=== PATIENT | female | born 1935 | race Caucasian/White ===

== ENCOUNTER → 2017-12-25 13:11 | Outpatient (CLI) | payer MEDICARE, SELFPAY ==
--- NOTE | 2017-12-25 13:16 | XR_ITS ---
DEXA SCAN.-BONE DENSITY STUDY HIPS AND LUMBAR SPINE HISTORY: Postmenopausal female TECHNIQUE: DEXA scan hip and lumbar spine The most complete data summary and color graphic presentation of the today's ( and any prior ) DEXA findings are available in PACS. Definition and treatment guidelines included. COMPARISON: 2015 DEXA scan ======LUMBAR SPINE: Normal bone density L1 vertebral body demonstrates the lowest T score -1.8 with BMD0.916 g/cm sq = osteopenia at L1 . Otherwise Overall mean lumbar L1-L4 T score -0.6 with BMD1.11 g/cm sq . 2016 prior DEXA the mean T score -0.7 with BMD was1.1g/cm sq Thus when comparing today's study to the prior exam there's been a minor 1% increasing mean bone density at the lumbar spine.. ====== HIPS: Femoral neck density is best predictor of hip fracture risk . Left neck demonstrates the lowest T score -2.2 with BMD0.738 g/cm sq . = Osteopenia Right femoral neck T score -1.7 with BMD 0.8 = osteopenia Averaging all region included yield today's overall Hip Mean T score -0.4 with BMD0.963 g/cm sq . 2016 DEXA overall hip T score -0.5 with mean BMD0.944 g/cm sq Thus this reflects a 2% % decrease in overall mean bone density at the hips in the interval. IMPRESSION 1. LUMBAR SPINE: Normal bone density overall T score = -0.6 . L1 with mild Osteopenia at L1 & T score = -1.8 2. HIPS: ... Overall normal bone density with T score = -0.4 However note osteopenia at the femoral necks bilaterally. With Left femoral neck T score = -2.2 WHO criteria for post-menopausal, Women: Normal: T-score at or above -1 SD Osteopenia: T-score between -1 and -2.5 SD Osteoporosis: T-score at or below -2.5 SD
== END ==
PROVIDERS: Family Provider Family Medicine; PCP Family Medicine; Visit Provider Family Medicine
DX: M85.89 Other specified disorders of bone density and structure, multiple sites (principal)
CPT/HCPCS: 77080

== ENCOUNTER → 2018-11-08 15:47 | Outpatient (CLI) | payer MEDICARE, SELFPAY ==
--- NOTE | 2018-11-08 15:54 | MM_ITS ---
MM Dig screening mamm BI w/CAD ORDERING PHYSICIAN : Iglesia Alva MD PATIENT AGE: 82 years GENDER: Female COMPARISON: February 2016. September and 2011. January 2014 INDICATION: ..82-year-old: SCREENING mammogram. No hormones. No new complaints. Noncontributory family history. TECHNIQUE: Standard CC and MLO images were obtained. R2 CAD reviewed. Additional nipple profile cc view both breast also is helpful. I FINDINGS: Moderate dense breast tissue for this age patient. Heterogeneous mild asymmetric pattern. Mammography is only slightly limited and areas of the increased density in nodularity No exogenous hormones history to contribute to such compared. However we see no significant interval change since multiple previous studies. No dominant mass. There are numerous small calcifications throughout the breasts bilaterally these appear to be stable benign pattern calcifications with no particularly suspicious forms. Bilateral follow-up in one year adequate .RIGHT BREAST:No new areas of significant concern. On scattered areas of density appear similar to previous study. Scattered small benign secretory appearing calcifications are similar to previous study.. . LEFT BREAST:. Areas of Asymmetric density are again seen at the superior & upper outer quadran, appear similar to studies dating back to 2012 2013;. Also noted. Dissipate between on the nipple profile cc view from today IMPRESSION: No significant new areas concern either breast. Stable mild asymmetry . Moderately dense breast bilaterally (particularly for this age patient) With this moderately dense heterogeneous pattern I would recommend ongoing bilateral follow-up in one year. BI-RADS Category: 2 Benign Finding(s) RECOMMENDED FOLLOW-UP: 1YR 1 YEAR FOLLOW-UP (A letter has been sent to the patient regarding results of the study.)
== END ==
PROVIDERS: PCP Family Medicine; Visit Provider Family Medicine
DX: Z12.31 Encounter for screening mammogram for malignant neoplasm of breast (principal)
CPT/HCPCS: 77067

== ENCOUNTER → 2019-12-17 13:35 | Outpatient (CLI) | payer MEDICARE, SELFPAY ==
--- NOTE | 2019-12-17 13:41 | MM_ITS ---
PROCEDURE: MM DIG SCREENING MAMM BI W/CAD CLINICAL INDICATION: SCREENING There is no personal or family history of breast cancer. COMPARISON: DMDXUWAL DIG MAMM-DX UNI LT W ADD VIEW from 09/26/2016 [facility] DIG MAMM-SCREEN PER W/CAD from 10/09/2017 [facility] MM Dig screening mamm BI w/CAD from 11/08/2018 TECHNIQUE: Standard CC and MLO images and 3D Tomosynthesis was obtained. R2 CAD reviewed. FINDINGS: Moderate scattered fibroglandular densities are seen in both breasts on a background of fatty breast parenchyma. There are multiple benign-appearing microcalcifications in each breast in addition to arterial calcification. The nipples appear to be inverted bilaterally this is been seen previously. There are stable small benign-appearing nodular densities in both breasts likely small cysts. These are best demonstrated on ghassan images. There is no suspicious lesion seen and no suspicious microcalcifications. IMPRESSION: Stable exam with no suspicious lesions seen BI-RAD Category: 2 Benign Finding(s) FOLLOW-UP: 1YR 1 Year Follow-up (A letter has been sent to the patient regarding results of the study.) Dictated by: Dr. Joey Marie MD 12/18/2019 08:[address] Joey Marie MD in [place] 12/18/2019 08:47
== END ==
PROVIDERS: PCP Family Medicine; Visit Provider Family Medicine
DX: Z12.31 Encounter for screening mammogram for malignant neoplasm of breast (principal)
CPT/HCPCS: 77063; 77067

== ENCOUNTER → 2020-08-28 09:59 | Outpatient (CLI) | payer MEDICARE, SELFPAY ==
--- NOTE | 2020-08-28 10:02 | XR_ITS ---
PROCEDURE: XR DEXA AXIAL SKELETON CLINICAL HISTORY: OSTEOPENIA COMPARISON: COLLEEN FISH DEXAAX XR DEXA axial skeleton from 12/25/2017 FINDINGS: The right hip BMD is 0.626 with a T-score of -2.0. The left hip BMD is 0.684 with a T-score of -1.5. The lumbar spine BMD is 0.923 with a T-score of -1.1. Previously the lowest bone density was in the left femoral neck with a T-score -2.2 IMPRESSION: This patient is considered osteopenic according to the World Health Organization criteria. Bone density is between 10 and 25 percent below young normal. Fracture risk is moderate. Treatment is advised. Based on these results a follow-up exam is recommended in 2 year. Dictated by: Tobias Brito MD 09/01/2020 07:16 Tobias Brito MD in [place] 09/01/2020 07:16
== END ==
PROVIDERS: PCP Family Medicine; Visit Provider Family Medicine
DX: M85.89 Other specified disorders of bone density and structure, multiple sites (principal)
CPT/HCPCS: 77080

== ENCOUNTER → 2021-03-01 09:10 | Outpatient (CLI) | payer MEDICARE, SELFPAY ==
--- NOTE | 2021-03-01 09:14 | MM_ITS ---
PROCEDURE INFORMATION: Exam: MG Screening 3D Mammography Exam date and time: 03/01/2021 9:14 AM Age: 85 years old Clinical indication: Encounter for screening mammogram for malignant neoplasm of breast TECHNIQUE: Imaging protocol: Screening tomosynthesis and 2D mammography including computer-aided detection (CAD) when performed. COMPARISON: 1. MG MM DIG SCREENING MAMM BI W/CAD 12/17/2019 2:02 PM 2. MG [facility] MM Dig screening mamm BI w/CAD 11/08/2018 4:10 PM FINDINGS: MAMMOGRAPHY: Breast composition: The breast tissue is heterogeneously dense, which may obscure small masses. Mass: None. Architectural distortion: None. Calcifications: No suspicious calcifications. Asymmetric density: 1.9 cm irregular asymmetry in the middle third of the left upper outer quadrant Skin thickening: None. Axillary adenopathy: None. IMPRESSION: Patient to be recalled for spot compression views of the left breast in the CC and MLO projections and left breast ultrasound for further evaluation of a left breast asymmetry. ASSESSMENT: BI-RADS Category 0: Incomplete- Need Additional Imaging Evaluation and/or Prior Mammograms for Comparison
== END ==
PROVIDERS: PCP Family Medicine; Visit Provider Family Medicine
DX: Z12.31 Encounter for screening mammogram for malignant neoplasm of breast (principal)
CPT/HCPCS: 77063; 77067

== ENCOUNTER → 2021-03-19 14:25 | Outpatient (CLI) | payer MEDICARE, SELFPAY ==
--- NOTE | 2021-03-19 14:28 | MM_ITS ---
PROCEDURE: MM DIG MAMM DX UNILAT LT CAD Digital Breast Tomosynthesis Included CLINICAL INDICATION: ABN MAMM Follow-up abnormal mammogram COMPARISON: MG [facility] MM Dig screening mamm BI w/CAD from 11/08/2018 MG MM DIG SCREENING MAMM BI W/CAD from 12/17/2019 MG MM DIG SCREENING MAMM BI W/CAD from 03/01/2021 US US BREAST LT COMPLETE from 03/19/2021 TECHNIQUE: Spot compression views and left breast ultrasound FINDINGS: On the spot compression views there is a persistent asymmetric density in the upper aspect of the left breast central 1/3. This measures approximately 8 mm. No malignant appearing mass is evident. Left breast ultrasound: A 8 mm cyst is present at 12 o'clock near the nipple and may correspond to the mammographic abnormality. Additionally at 12 o'clock there is a another cyst at 9 mm. 4 mm cyst at 1 o'clock. 7 mm hypoechoic nodule at 2 o'clock nonspecific. 5 mm cyst at 2 o'clock. 11 mm cyst at 4 o'clock near the nipple. At 6 o'clock there are 2 cyst measuring 5 mm each. IMPRESSION: Mammographic abnormality may correspond to a small cyst. Multiple small cysts are present in the left breast. Suggest 6 month mammographic and sonographic follow-up to confirm stability BI-RAD Category: 3 Probably Benign Finding Short Term Follow-Up FOLLOW-UP: 6M 6 Month Follow-up (A letter has been sent to the patient regarding results of the study.) Dictated by: Tobias Brito MD 03/22/2021 11:58 Tobias Brito MD in [place] 03/22/2021 11:58
== END ==
PROVIDERS: PCP Family Medicine; Visit Provider Physician Assistant
DX: R92.8 Other abnormal and inconclusive findings on diagnostic imaging of breast (principal)
CPT/HCPCS: 76641; 77061; 77065; G0279

== ENCOUNTER → 2021-09-20 13:52 | Outpatient (CLI) | payer MEDICARE, SELFPAY ==
--- NOTE | 2021-09-20 | US_ITS ---
PROCEDURE: MM DIG MAMM DX UNILAT LT CAD Digital Breast Tomosynthesis Included CLINICAL INDICATION: abnormal mammogram Follow-up abnormal mammogram COMPARISON: MG MM DIG SCREENING MAMM BI W/CAD from 12/17/2019 MG MM DIG SCREENING MAMM BI W/CAD from 03/01/2021 MG MM DIG MAMM DX UNILAT LT CAD from 03/19/2021 US US BREAST LT COMPLETE from 03/19/2021 US US BREAST LT COMPLETE from 09/20/2021 TECHNIQUE: Standard CC and MLO images and 3D Tomosynthesis was obtained. R2 CAD reviewed. Left breast ultrasound complete FINDINGS: There are scattered areas of fibroglandular density. Adequate compression was unable to be obtained due to patient's tenderness. Spot-compression views were also not performed due to this fact. There was a moderate amount of skin thickening. Asymmetry once again noted in the upper outer left breast central 1/3 benign-appearing calcifications. No obvious malignant-appearing mass. No malignant appearing microcalcifications. No adenopathy. Left breast ultrasound: Scattered small cysts as before. No suspicious nodule evident. No suspicious solid lesions evident. IMPRESSION: There has been interval worsening of skin thickening. Asymmetry once again noted in the upper outer left breast. Spot-compression views could not be performed due to patient's tenderness. Suggest patient return when symptoms reside for spot-compression views and straight mL view of the left breast. No change in the multiple small left breast cysts. BI-RAD Category: 0 Need Additional Imaging Evaluation FOLLOW-UP: IMM Immediate Follow-up Recommended (A letter has been sent to the patient regarding results of the study.) Dictated by: Tobias Brito MD 09/24/2021 13:29 Tobias Brito MD in [place] 09/24/2021 13:29
== END ==
PROVIDERS: PCP Family Medicine; Visit Provider Obstetrics & Gynecology
DX: R92.8 Other abnormal and inconclusive findings on diagnostic imaging of breast (principal)
CPT/HCPCS: 76641; 77061; 77065; G0279

== ENCOUNTER → 2021-10-13 14:02 | Outpatient (CLI) | payer MEDICARE, SELFPAY ==
--- NOTE | 2021-10-13 | US_ITS ---
PROCEDURE INFORMATION: Exam: US Left Breast, Complete MG Left Diagnostic Breast Tomosynthesis Exam date and time: 10/13/2021 2:33 PM Age: 85 years old Clinical indication: Callback for additional assessment of a 19 mm asymmetry in the middle 1/3 left upper outer breast identified on 03/01/2021. 09/20/2021 mammogram/ultrasound described in adequate compression with skin thickening and indicated BI-RADS category 0 for spot compression views of the left breast TECHNIQUE: Imaging protocol: Complete ultrasound of all four quadrants of the Left breast and the retroareolar regions, including ultrasound of the axilla when performed. Left Diagnostic tomosynthesis and 2D mammography including computer-aided detection (CAD) when performed. Unilateral or bilateral exam. COMPARISON: MG MM DIG SCREENING MAMM BI W/CAD 03/01/2021 9:22 AM FINDINGS: MAMMOGRAPHY: Spot compression views demonstrate a 2 cm partially obscured irregular spiculated appearing mass in the upper Outer left middle 1/3, about 7 cm from the nipple. There is also evidence of diffuse skin thickening. ULTRASOUND: In the 2 o'clock left middle 1/3 there is a heterogeneously hypoechoic irregular shadowing area of tissues spanning about 2 cm maximally. This corresponds well in size in location with the mammographically apparent mass Incidental note is made of cysts and complicated cysts measuring 6 mm 5 o'clock periareolar and 9 mm 11 o'clock periareolar and 7 mm 11 o'clock periareolar There is diffuse skin thickening, measuring up to about 5 mm. No axillary adenopathy IMPRESSION: Ultrasound-guided biopsy is recommended to definitively characterize a suspicious left 2 o'clock middle 1/3 shadowing mass which measures about 2 cm sonographically. Malignancy could have this appearance There is breast skin thickening. If there is clinical concern for inflammatory breast cancer, then punch biopsy of the skin should be performed ASSESSMENT: BI-RADS category 4: Suspicious
== END ==
PROVIDERS: PCP Family Medicine; Visit Provider Obstetrics & Gynecology
DX: R92.8 Other abnormal and inconclusive findings on diagnostic imaging of breast (principal)
CPT/HCPCS: 76641; 77061; 77065; G0279

== ENCOUNTER → 2021-11-16 08:27 | Outpatient (CLI) | payer MEDICARE, SELFPAY ==
--- NOTE | 2021-11-16 | MM_ITS ---
FINAL REPORT CLINICAL HISTORY: s/p bx, clip placement FINDINGS: MAMMOGRAM DIAGNOSTIC LEFT HISTORY: Left breast biopsy. Clip placement. TECHNIQUE: Standard digital 2-D views DENSITY: The breasts are heterogeneously dense, which may obscure small masses. FINDINGS: Biopsy marker clip is noted in the left breast at approximately 12:00. The associated lesion seen on sonography is not well-defined mammographically. No significant hemorrhage is seen. IMPRESSION: Biopsy marker clip noted in place. Lesion seen sonographically is not evident mammographically but the clip was noted to be in good position based on sonographic images. RECOMMENDATION: Pending histopathology results Authenticated by Vincent Winters MD on 11/18/2021 02:37:58 PM [facility]
--- NOTE | 2021-11-16 08:36 | US_ITS ---
FINAL REPORT CLINICAL HISTORY: LT BREAST biopsy; performed this biopsy, he will read this FINDINGS: ULTRASOUND-GUIDED LEFT BREAST BIOPSY TECHNIQUE: Limited images were obtained to localize region of interest. An ill-defined somewhat shadowing hypoechoic focus was noted in the upper outer quadrant at 2:00. This is similar to the diagnostic mammogram and ultrasound findings performed approximate 1 month earlier. The breast upper outer quadrant was prepped in a routine sterile fashion and locally anesthetized with 1% lidocaine. The needle was positioned within the outer periphery of the lesion. A total of 4 passes were made with a 14 gauge core biopsy needle. A biopsy marker clip was deployed within the lesion. A postbiopsy mammogram was also obtained dictated under separate report. Procedure was well tolerated . CONCLUSION: 1. Technically successful ultrasound guided core biopsy of left breast upper outer quadrant lesion as above. 2. Deployed within the lesion 3. Post biopsy mammogram acquired dictated separately Authenticated by Vincent Winters MD on 11/18/2021 02:29:52 PM [facility]
== END ==
PROVIDERS: PCP Family Medicine; Visit Provider Surgery
DX: R92.8 Other abnormal and inconclusive findings on diagnostic imaging of breast (principal); N63.20 Unspecified lump in the left breast, unspecified quadrant
CPT/HCPCS: 19083; 77065; 88305; 88360

== ENCOUNTER → 2022-01-13 11:45 | Outpatient (CLI) | payer MEDICARE, SELFPAY ==
[2022-01-13 12:16] LABS: Basophils % 0.7 % (0.1-2.0); Eosinophils # 0.1 K/mm3 (0.0-0.4); Eosinophils % 1.5 % (0.1-12.0); Hematocrit 40.5 % (37.0-47.0); Hemoglobin 13.2 g/dL (12.2-16.2); Mean Corpuscular HGB Conc 32.6 g/dL (31.8-35.4); Mean Corpuscular Hemoglobin 30.5 pg (27.0-31.2); Mean Corpuscular Volume 93.5 fl (81-99); Mean Platelet Volume 8.9 fl (7.4-10.4); Monocytes # 0.1 K/mm3 (0.1-1.0); Monocytes % 1.3 % (1.7-9.3); Neutrophils # 2.5 K/mm3 (1.8-7.8); Neutrophils % 68.4 % (37.0-80.0); Platelet Count 240 K/mm3 (142-424); Red Blood Count 4.33 M/mm3 (4.20-5.40); Red Cell Distribution Width 13.9 % (11.5-17.5); White Blood Count 3.7 K/mm3 (4.8-10.8)
[2022-01-13 12:53] LABS: Chloride 106 mmol/L (98-107); Potassium 3.8 mmoL/L (3.5-5.1); Sodium 137 mmol/L (136-145)
[2022-01-13 12:56] LABS: Alanine Aminotransferase 18 U/L (12-78); Albumin Level 4.1 g/dl (3.5-5.0); Albumin/Globulin Ratio 1.8 (1.1-1.8); Alkaline Phosphatase 59 U/L (38-126); Anion Gap 11.8 mEq/L (5-15); Aspartate Amino Transferase 24 U/L (14-36); Bilirubin,Total 0.7 mg/dl (0.2-1.3); Blood Urea Nitrogen 17 mg/dl (7-17); Carbon Dioxide 23 mmol/L (22.0-30.0); Estimated Glomerular Filt Rate 53 ml/min (>60); GFR (African American) 64 ML/MIN (>60); Globulin 2.3 g/dL (1.3-3.2); Total Protein,Serum 6.4 g/dl (6.3-8.2)
[2022-01-13 12:57] LABS: Calcium 9.1 mg/dl (8.4-10.2); Glucose 112 mg/dl (74-100)
== END ==
PROVIDERS: Visit Provider Internal Medicine Hematology & Oncology
DX: C50.812 Malignant neoplasm of overlapping sites of left female breast (principal); Z17.0 Estrogen receptor positive status [ER+]
CPT/HCPCS: 36415; 80053; 85025

== ENCOUNTER → 2022-02-02 09:26 | Outpatient (CLI) | payer MEDICARE, SELFPAY ==
[2022-02-02 09:52] LABS: Basophils # 0.1 K/mm3 (0-0.2); Basophils % 2.7 % (0.1-2.0); Eosinophils % 1.3 % (0.1-12.0); Hematocrit 39.2 % (37.0-47.0); Hemoglobin 12.5 g/dL (12.2-16.2); Lymphocytes # 0.9 K/mm3 (0.7-4.5); Lymphocytes % 32.1 % (10-50); Mean Corpuscular Hemoglobin 31.4 pg (27.0-31.2); Mean Corpuscular Volume 98.1 fl (81-99); Monocytes # 0.2 K/mm3 (0.1-1.0); Monocytes % 7.2 % (1.7-9.3); Neutrophils # 1.6 K/mm3 (1.8-7.8); Neutrophils % 56.8 % (37.0-80.0); Platelet Count 170 K/mm3 (142-424); Red Cell Distribution Width 17.7 % (11.5-17.5); White Blood Count 2.8 K/mm3 (4.8-10.8)
[2022-02-02 10:42] LABS: Alanine Aminotransferase 72 U/L (12-78); Albumin Level 3.9 g/dl (3.5-5.0); Albumin/Globulin Ratio 1.6 (1.1-1.8); Alkaline Phosphatase 86 U/L (38-126); Anion Gap 13.5 mEq/L (5-15); Aspartate Amino Transferase 69 U/L (14-36); Bilirubin,Total 0.5 mg/dl (0.2-1.3); Blood Urea Nitrogen 13 mg/dl (7-17); Calcium 9.2 mg/dl (8.4-10.2); Carbon Dioxide 25 mmol/L (22.0-30.0); Chloride 105 mmol/L (98-107); Estimated Glomerular Filt Rate 60 ml/min (>60); GFR (African American) 72 ML/MIN (>60); Globulin 2.4 g/dL (1.3-3.2); Glucose 135 mg/dl (74-100); Potassium 3.5 mmoL/L (3.5-5.1); Sodium 140 mmol/L (136-145); Total Protein,Serum 6.3 g/dl (6.3-8.2)
== END ==
PROVIDERS: Visit Provider Internal Medicine Hematology & Oncology
DX: C50.812 Malignant neoplasm of overlapping sites of left female breast (principal)
CPT/HCPCS: 36415; 80053; 85025

== ENCOUNTER → 2022-02-16 09:36 | Outpatient (CLI) | payer MEDICARE, SELFPAY ==
[2022-02-16 10:24] LABS: Chloride 107 mmol/L (98-107); Potassium 3.7 mmoL/L (3.5-5.1); Sodium 140 mmol/L (136-145)
[2022-02-16 10:26] LABS: Blood Urea Nitrogen 20 mg/dl (7-17)
[2022-02-16 10:27] LABS: Alanine Aminotransferase 22 U/L (12-78); Albumin Level 3.8 g/dl (3.5-5.0); Albumin/Globulin Ratio 1.6 (1.1-1.8); Alkaline Phosphatase 103 U/L (38-126); Anion Gap 12.7 mEq/L (5-15); Aspartate Amino Transferase 20 U/L (14-36); Bilirubin,Total 0.5 mg/dl (0.2-1.3); Carbon Dioxide 24 mmol/L (22.0-30.0); Estimated Glomerular Filt Rate 47 ml/min (>60); GFR (African American) 57 ML/MIN (>60); Globulin 2.4 g/dL (1.3-3.2); Glucose 115 mg/dl (74-100); Total Protein,Serum 6.2 g/dl (6.3-8.2)
== END ==
PROVIDERS: Visit Provider Internal Medicine Hematology & Oncology
DX: C50.812 Malignant neoplasm of overlapping sites of left female breast (principal); Z17.0 Estrogen receptor positive status [ER+]
CPT/HCPCS: 36415; 80053

== ENCOUNTER → 2022-03-17 09:50 | Outpatient (CLI) | payer MEDICARE, SELFPAY ==
[2022-03-17 11:49] LABS: Chloride 109 mmol/L (98-107); Potassium 3.7 mmoL/L (3.5-5.1); Sodium 141 mmol/L (136-145)
[2022-03-17 11:51] LABS: Blood Urea Nitrogen 22 mg/dl (7-17); Estimated Glomerular Filt Rate 53 ml/min (>60); GFR (African American) 64 ML/MIN (>60)
[2022-03-17 11:52] LABS: Alanine Aminotransferase 14 U/L (12-78); Albumin Level 3.7 g/dl (3.5-5.0); Albumin/Globulin Ratio 1.5 (1.1-1.8); Alkaline Phosphatase 69 U/L (38-126); Anion Gap 12.7 mEq/L (5-15); Aspartate Amino Transferase 24 U/L (14-36); Bilirubin,Total 0.6 mg/dl (0.2-1.3); Calcium 10.3 mg/dl (8.4-10.2); Carbon Dioxide 23 mmol/L (22.0-30.0); Globulin 2.5 g/dL (1.3-3.2); Glucose 120 mg/dl (74-100); Total Protein,Serum 6.2 g/dl (6.3-8.2)
== END ==
PROVIDERS: Visit Provider Internal Medicine Hematology & Oncology
DX: C50.812 Malignant neoplasm of overlapping sites of left female breast (principal); Z17.0 Estrogen receptor positive status [ER+]
CPT/HCPCS: 36415; 80053

== ENCOUNTER → 2022-04-15 11:26 | Outpatient (CLI) | payer MEDICARE, SELFPAY ==
[2022-04-15 12:26] LABS: Chloride 110 mmol/L (98-107); Potassium 4.6 mmoL/L (3.5-5.1); Sodium 141 mmol/L (136-145)
[2022-04-15 12:28] LABS: Blood Urea Nitrogen 33 mg/dl (7-17); Estimated Glomerular Filt Rate 39 ml/min (>60); GFR (African American) 47 ML/MIN (>60)
[2022-04-15 12:29] LABS: Alanine Aminotransferase 18 U/L (12-78); Albumin Level 4.2 g/dl (3.5-5.0); Albumin/Globulin Ratio 1.8 (1.1-1.8); Alkaline Phosphatase 57 U/L (38-126); Anion Gap 12.6 mEq/L (5-15); Aspartate Amino Transferase 25 U/L (14-36); Bilirubin,Total 0.4 mg/dl (0.2-1.3); Calcium 10.2 mg/dl (8.4-10.2); Carbon Dioxide 23 mmol/L (22.0-30.0); Globulin 2.4 g/dL (1.3-3.2); Glucose 126 mg/dl (74-100); Total Protein,Serum 6.6 g/dl (6.3-8.2)
== END ==
PROVIDERS: PCP Family Medicine; Visit Provider Internal Medicine Hematology & Oncology
DX: C50.812 Malignant neoplasm of overlapping sites of left female breast (principal); Z17.0 Estrogen receptor positive status [ER+]
CPT/HCPCS: 36415; 80053

== ENCOUNTER → 2022-05-13 11:17 | Outpatient (CLI) | payer MEDICARE, SELFPAY ==
[2022-05-13 12:43] LABS: Alanine Aminotransferase 19 U/L (12-78); Albumin Level 4.1 g/dl (3.5-5.0); Albumin/Globulin Ratio 1.8 (1.1-1.8); Alkaline Phosphatase 59 U/L (38-126); Aspartate Amino Transferase 25 U/L (14-36); Bilirubin,Total 0.3 mg/dl (0.2-1.3); Blood Urea Nitrogen 30 mg/dl (7-17); Calcium 10.2 mg/dl (8.4-10.2); Carbon Dioxide 23 mmol/L (22.0-30.0); Chloride 109 mmol/L (98-107); Estimated Glomerular Filt Rate 33 ml/min (>60); GFR (African American) 40 ML/MIN (>60); Globulin 2.3 g/dL (1.3-3.2); Glucose 118 mg/dl (74-100); Sodium 142 mmol/L (136-145); Total Protein,Serum 6.4 g/dl (6.3-8.2)
== END ==
PROVIDERS: PCP Family Medicine; Visit Provider Internal Medicine Hematology & Oncology
DX: C50.812 Malignant neoplasm of overlapping sites of left female breast (principal); Z17.0 Estrogen receptor positive status [ER+]
CPT/HCPCS: 36415; 80053

== ENCOUNTER 2023-03-12 23:45 | Emergency (ER) | payer MEDICARE, SELFPAY ==
[2023-03-12 23:46] VITALS: BP 126/67; PULSE 76; RESP 18; TEMP 36.6; O2SAT 94; BMI 27.2
[2023-03-12 23:47] VITALS: BMI 20.1
--- NOTE | 2023-03-12 23:48 | ECG_ITS ---
APPROVED REPORT Exam: Resting ECG HR:77 bpm ECG Measurements Heart Rate 77 AXES DC 170 P 60 QRSd 115 QRS -10 QT 395 T 55 QTc 427 Conclusion SINUS RHYTHM LOW QRS VOLTAGE IN PRECORDIAL LEADS [QRS DEFLECTION < 1.0 mV IN CHEST LEADS] RIGHT BUNDLE BRANCH BLOCK [120+ ms QRS DURATION, UPRIGHT V1, 40+ ms S IN I/aVL/V4/V5/V6] POSSIBLE ANTERIOR MYOCARDIAL INFARCTION , PROBABLY OLD [30 ms Q WAVE IN V3/V4, OR R < 0.2 mV IN V4] ABNORMAL ECG UNCONFIRMED REPORT Electronically signed by : Sd Lim MD 03/13/2023 21:15:57
[2023-03-13 00:09] LABS: Basophils % 0.2 % (0.1-2.0); Eosinophils # 0.1 K/mm3 (0.0-0.4); Eosinophils % 2.6 % (0.1-12.0); Hematocrit 38.7 % (37.0-47.0); Hemoglobin 12.3 g/dL (12.2-16.2); Lymphocytes # 0.8 K/mm3 (0.7-4.5); Lymphocytes % 23.5 % (10-50); Mean Corpuscular HGB Conc 31.9 g/dL (31.8-35.4); Mean Corpuscular Hemoglobin 37.3 pg (27.0-31.2); Mean Corpuscular Volume 117.1 fl (81-99); Mean Platelet Volume 10.1 fl (7.4-10.4); Monocytes # 0.1 K/mm3 (0.1-1.0); Monocytes % 3.2 % (1.7-9.3); Neutrophils # 2.5 K/mm3 (1.8-7.8); Neutrophils % 70.5 % (37.0-80.0); Platelet Count 257 K/mm3 (142-424); Red Blood Count 3.31 M/mm3 (4.20-5.40); Red Cell Distribution Width 15.7 % (11.5-17.5); White Blood Count 3.6 K/mm3 (4.8-10.8)
[2023-03-13 00:11] LABS: Alanine Aminotransferase 20 U/L (12-78); Albumin Level 2.8 g/dl (3.5-5.0); Alkaline Phosphatase 60 U/L (38-126); Aspartate Amino Transferase 29 U/L (14-36); Bilirubin,Indirect 0.3 mg/dL (0.0-0.9); Bilirubin,Total 0.3 mg/dl (0.2-1.3); Bilirubin,Unconjugated 0.5 mg/dL (0.0-1.1); Blood Urea Nitrogen 49 mg/dl (7-17); Calcium 9.2 mg/dl (8.4-10.2); Carbon Dioxide 25 mmol/L (22.0-30.0); Chloride 98 mmol/L (98-107); Creatinine Clearance Estimated 25 mL/min (50-200); Estimated Glomerular Filt Rate 39 ml/min (>60); GFR (African American) 47 ML/MIN (>60); Glucose 116 mg/dl (74-100); Magnesium 1.8 mg/dl (1.6-2.3); Sodium 135 mmol/L (136-145); Total Protein,Serum 5.5 g/dl (6.3-8.2)
[2023-03-13 00:16] LABS: C-Reactive Protein 130.3 mg/L (0-4)
[2023-03-13 00:23] LABS: NT Pro Brain Natriuretic Pep. 168 pg/mL (0-450)
--- NOTE | 2023-03-13 00:25 | PC.NURSE ---
Dr. Montero at
[2023-03-13 00:28] LABS: Troponin I 0.01 ng/ml (0.00-0.034)
--- NOTE | 2023-03-13 00:28 | HMH.EDSOB ---
Discharge Plan Disposition Patient Disposition: Home, Self-Care Prescriptions Prescriptions: New pantoprazole [Protonix] 40 mg tablet,delayed release (DR/EC) 40 mg PO HS 28 Days Qty: 28 0RF levofloxacin 500 mg tablet 500 mg PO DAILY Qty: 7 0RF No Action potassium chloride 20 mEq tablet extended release 20 meq PO DAILY metoprolol succinate 200 mg tablet extended release 24 hr 200 mg PO DAILY Label Comments: TAKE ONE TABLET BY MOUTH EVERY DAY levothyroxine 25 mcg tablet 25 mcg PO DAILY Label Comments: TAKE ONE TABLET BY MOUTH EVERY DAY amlodipine 10 mg tablet 10 mg PO DAILY Label Comments: TAKE ONE TABLET BY MOUTH EVERY DAY simvastatin 20 mg tablet 20 mg PO DAILY Label Comments: TAKE ONE TABLET BY MOUTH EVERY DAY AT BEDTIME irbesartan 300 mg tablet 300 mg PO DAILY Label Comments: TAKE ONE TABLET BY MOUTH EVERY DAY Referrals Follow up/Referrals: Iglesia Alva MD [Primary Care Provider] - See instructions Clinical Impressions Clinical Impression: CAP (community acquired pneumonia), Esophagitis, Breast cancer in female Instructions Patient Instructions: DI for Shortness of Breath Discharge ED Provider: Winston (ED)Gal Resp/SOB HPI General Chief Complaint: Shortness of Breath/Dyspnea Stated Complaint: CP /SOA Time Seen by Provider: 03/13/23 00:28 Mode of Arrival: Wheelchair Source of Information: Patient, Relative and Medical Record Limitations: No Limitations Description of Symptoms (Recalled from ER Triage Doc. by RN): pt c/o shortness of breath all day. pt had been released from after a scheduled fluid removal after shortness of air that was too much for her to handle. pt has hx of skin cancer that has advanced History of Present Illness pt with known metastatic breast cancer and was at and had ascites and pleural effusion and released - has sob again and occ chest pain and c/o of esophageal pain relieved with cold liquids Complaint: shortness of breath Onset (ago): day(s) Context: other (has cancer ) Severity: moderate Consistency/Duration: intermittent Known history of: other (breast cancer ) Associated symptoms: other (sob) Related Data Home oxygen amount: none Home Medications Medication Instructions Recorded Confirmed potassium chloride 20 mEq 20 meq PO DAILY Supplement 05/25/21 03/13/23 tablet,extended release amlodipine 10 mg tablet 10 mg PO DAILY . 03/13/23 03/13/23 irbesartan 300 mg tablet 300 mg PO DAILY . 03/13/23 03/13/23 levothyroxine 25 mcg tablet 25 mcg PO DAILY . 03/13/23 03/13/23 metoprolol succinate 200 mg 200 mg PO DAILY . 03/13/23 03/13/23 tablet,extended release 24 hr simvastatin 20 mg tablet 20 mg PO DAILY . 03/13/23 03/13/23 Previous Rx's Medication Instructions Recorded levofloxacin 500 mg tablet 500 mg PO DAILY #7 tabs 03/13/23 pantoprazole 40 mg tablet,delayed 40 mg PO HS 4 weeks #28 tabs 03/13/23 release (Protonix) Allergies Allergy/AdvReac Type Severity Reaction Status Date / Time No Known Allergies Allergy Verified 12/06/21 13:26 Well's Criteria PE Score Clinical signs/symptoms of DVT: No PE is #1 diagnosis or equally likely: Yes Heart rate is > 100: No Immobile at least 3 days, or surgery in past 4 wks: No Previously, obj. diagnosed PE or DVT: No Hemoptysis: No Malignancy w/Rx within 6mo, or palliative: Yes PE Score: 4 Risk of Pulmonary Embolism by score: >3 pts=Hi Risk (78%) [facility] Disclaimer: The information contained in this section may have been updated after the patient was seen, as this information can be updated by other users. Social History Smoking Status: Never smoker alcohol intake: never substance use type: denies use current occupational status: retired Travel in the last 8 weeks: None ROS Obtained: Yes All systems reviewed & no additional complaints except as documented Physical Exam Ge
[2023-03-13 00:30] VITALS: BP 109/55; PULSE 71; O2SAT 97
[2023-03-13 00:30] LABS: Procalcitonin 0.304 ng/mL (0.0-2.0)
--- NOTE | 2023-03-13 00:30 | CT_ITS ---
PROCEDURE INFORMATION: Exam: CTA Chest With Contrast Exam date and time: 03/13/2023 12:54 AM Age: 87 years old Clinical indication: Shortness of breath; Additional info: SOA TECHNIQUE: Imaging protocol: Computed tomographic angiography of the chest with contrast. 3D rendering (Not supervised by radiologist): MIP and/or 3D reconstructed images were created by the technologist. Total images: 268 Radiation optimization: All CT scans at this facility use at least one of these dose optimization techniques: automated exposure control; mA and/or kV adjustment per patient size (includes targeted exams where dose is matched to clinical indication); or iterative reconstruction. Contrast material: ISOVUE; Contrast volume: 70 ml; Contrast route: INTRAVENOUS (IV); REPORTING DATA: Count of CT and Cardiac NM exams in prior 12 months: This patient has received 0 known CTs and 0 known cardiac nuclear medicine studies in the 12 months prior to the current study. COMPARISON: No relevant prior studies available. FINDINGS: Pulmonary arteries: Adequate contrast opacification of the pulmonary arteries. Cardiac pulsation artifact in the pulmonary outflow tract. No main or proximal segmental pulmonary emboli. Moderate limitations imposed by respiratory motion obscuring distal segmental and subsegmental branches. Aorta: Atherosclerotic thoracic aorta without aneurysm or dissection. Lungs: Trachea and main bronchi are patent. Right greater than left lower lobe airspace consolidation and atelectasis. Infiltrative changes right middle lobe and to a much lesser extent inferior lingula. Upper lungs are relatively clear. Pleural spaces: Moderate bilateral pleural effusions, right greater than left. Heart: Normal heart size. Trace pericardial effusion. Coronary arteries: Prominent coronary artery calcification mostly along the LAD. Mediastinal space: Considerable circumferential wall thickening mid to distal esophagus. Fluid within the esophageal lumen. Lymph nodes: No mediastinal or hilar lymphadenopathy. Liver: Lobulated hepatic contour. Suspect subcentimeter flash filling capillary hemangioma anterior right hepatic dome, axial image 83. Adrenal glands: Bilateral adrenal thickening. Intraperitoneal space: Moderate ascites. Bones/joints: Osteopenia. Mild degenerative changes thoracic spine. No acute osseous abnormality. Soft tissues: Unremarkable. IMPRESSION: 1. No evidence for main or proximal segmental pulmonary emboli. Please note, distal branch evaluation compromised by respiratory motion. 2. Atherosclerotic aorta without aneurysm or dissection 3. Prominent coronary artery calcifications 4. Moderate bilateral pleural effusions 5. Right greater than left basilar airspace consolidation likely reflecting pneumonia and atelectasis. 6. Considerable circumferential wall thickening and edema of the mid and distal esophagus, highly concerning for acute esophagitis. 7. Moderate ascites. 8. Bilateral adrenal thickening.
--- NOTE | 2023-03-13 00:30 | XR_ITS ---
PROCEDURE INFORMATION: Exam: XR Chest Exam date and time: 03/13/2023 1:01 AM Age: 87 years old Clinical indication: Shortness of breath; Additional info: SOA TECHNIQUE: Imaging protocol: Radiologic exam of the chest. Views: 1 view. Total images: 1 COMPARISON: CT ANGIO CHEST PE PROTOCOL 03/13/2023 12:54 AM FINDINGS: Lungs: Right greater than left basilar airspace consolidation. Upper lungs are clear. No pulmonary vascular congestion. Pleural spaces: Small to moderate bilateral pleural effusions. No pneumothorax. Heart/Mediastinum: Unremarkable. No cardiomegaly. No mediastinal widening or hilar enlargement. Vasculature: Atherosclerotic aortic arch. Bones/joints: Osteopenia. Partially visualized mild degenerative changes thoracic spine. IMPRESSION: 1. Small to moderate bilateral pleural effusions. 2. Right greater than left basilar airspace consolidation implying pneumonia and atelectasis. 3. No pulmonary vascular congestion.
[2023-03-13 00:38] LABS: Coronavirus 19, PCR Not Detected (NotDetected); Influenza A, PCR Not Detected (NotDetected); Influenza B, PCR Not Detected (NotDetected)
[2023-03-13 00:39] LABS: Erythrocyte Sedimentation Rate 103 mm/hr (0-30)
[2023-03-13 01:01] VITALS: BP 121/55; PULSE 72; O2SAT 95
--- NOTE | 2023-03-13 01:20 | PC.NURSE ---
talked to [facility] about obtaining past records, they will send them over via fax.
[2023-03-13 01:30] VITALS: BP 118/49; PULSE 74; O2SAT 94
[2023-03-13 03:27] LABS: Microscopic, Urine URINE MICROSCOPIC (MICROSCOPIC)
[2023-03-13 03:28] LABS: Appearance,Urine CLEAR (Clear); Bilirubin,Urine Negative (Negative); Blood, Urine Negative (Negative); Color,Urine YELLOW (Yellow); Glucose,Urine (UA) Negative (Negative); Ketones,Urine TRACE (Negative); Leukocyte Esterase,Urine TRACE (Negative); Nitrate,Urine Negative (Negative); Protein,Urine Negative (Negative); Specific Gravity, Urine <= 1.005 (1.005-1.030); Urobilinogen,Urine 0.2 EU/dl (0.2)
[2023-03-13 03:39] LABS: Bacteria,Urine Trace /lpf
--- NOTE | 2023-03-13 04:00 | PC.NURSE ---
Pt provided with water per request.
[2023-03-13 04:23] LABS: Troponin I 0.02 ng/ml (0.00-0.034)
--- NOTE | 2023-03-13 04:25 | PC.NURSE ---
in room speaking with patient at this time.
[2023-03-13 04:50] VITALS: BP 105/60; PULSE 74; RESP 16; TEMP 36.6; O2SAT 94
== END 2023-03-13 05:02 | disposition home or self-care (01) ==
PROVIDERS: Emergency Provider Emergency Medicine; PCP Family Medicine
DX: J18.9 Pneumonia, unspecified organism (principal); R06.02 Shortness of breath; K20.90 Esophagitis, unspecified without bleeding; C50.412 Malignant neoplasm of upper-outer quadrant of left female breast; J90 Pleural effusion, not elsewhere classified
CPT/HCPCS: 71045; 71275; 80048; 80076; 81001; 83735; 83880; 84145; 84484; 85025; 85651; 86140; 87635; 87636; 93005; 96361; 96374; 96375; 99285; C9803; J0696; U0003; U0005

== ENCOUNTER 2023-04-18 12:29 | Emergency (ER) | payer MEDICARE, SELFPAY ==
[2023-04-18 12:29] VITALS: BP 141/83; PULSE 101; RESP 18; TEMP 36.7; O2SAT 95; BMI 25.2
--- NOTE | 2023-04-18 12:46 | US_ITS ---
FINAL REPORT CLINICAL HISTORY: possible ascitesc h/o ca FINDINGS: Sonographic images of the abdomen were obtained. There is a large amount of ascites throughout the abdomen in all 4 quadrants. IMPRESSION: Large amount of ascites. Reviewed, Interpreted and Dictated by Ramone Ramon MD Transcribed by Starr Diaz Authenticated and [facility]
--- NOTE | 2023-04-18 12:47 | HMH.EDGENADL ---
Discharge Plan Disposition Patient Disposition: Home, Self-Care Condition: Fair Chief Complaint: Abdominal Pain Prescriptions Prescriptions: No Action potassium chloride 20 mEq tablet extended release 20 meq PO DAILY metoprolol succinate 200 mg tablet extended release 24 hr 200 mg PO DAILY Label Comments: TAKE ONE TABLET BY MOUTH EVERY DAY levothyroxine 25 mcg tablet 25 mcg PO DAILY Label Comments: TAKE ONE TABLET BY MOUTH EVERY DAY amlodipine 10 mg tablet 10 mg PO DAILY Label Comments: TAKE ONE TABLET BY MOUTH EVERY DAY simvastatin 20 mg tablet 20 mg PO DAILY Label Comments: TAKE ONE TABLET BY MOUTH EVERY DAY AT BEDTIME irbesartan 300 mg tablet 300 mg PO DAILY Label Comments: TAKE ONE TABLET BY MOUTH EVERY DAY pantoprazole [Protonix] 40 mg tablet,delayed release (DR/EC) 40 mg PO HS 28 Days Qty: 28 0RF levofloxacin 500 mg tablet 500 mg PO DAILY Qty: 7 0RF Referrals Follow up/Referrals: Iglesia Alva MD [Primary Care Provider] - See instructions Activity Restrictions/Add. Instructions Additional Instructions/Restrictions: He need to go to to see your oncologist and have them arrange with IR for a therapeutic paracentesis Clinical Impressions Clinical Impression: Abdominal ascites Instructions Patient Instructions: DI for Ascites, DI for Abdominal Paracentesis, DI for Acute Abdominal Pain Discharge ED Provider: Vin Huffman General Adult HPI General Chief complaint: Abdominal Pain Stated complaint: SOA, abd swelling Time Seen by Provider: 04/18/23 13:06 History of Present Illness HPI narrative: This is an 87-year-old female with a history of cancer who has had paracentesis and pleurocentesis in the past who presents to the emergency room because she wants to know if her belly is swollen again. No abdominal pain no nausea vomiting diarrhea no chest pain or shortness of breath. Patient said her belly was last drained 2 weeks ago Related Data Home Medications Medication Instructions Recorded Confirmed potassium chloride 20 mEq 20 meq PO DAILY Supplement 05/25/21 03/13/23 tablet,extended release amlodipine 10 mg tablet 10 mg PO DAILY . 03/13/23 03/13/23 irbesartan 300 mg tablet 300 mg PO DAILY . 03/13/23 03/13/23 levothyroxine 25 mcg tablet 25 mcg PO DAILY . 03/13/23 03/13/23 metoprolol succinate 200 mg 200 mg PO DAILY . 03/13/23 03/13/23 tablet,extended release 24 hr simvastatin 20 mg tablet 20 mg PO DAILY . 03/13/23 03/13/23 Previous Rx's Medication Instructions Recorded levofloxacin 500 mg tablet 500 mg PO DAILY #7 tabs 03/13/23 pantoprazole 40 mg tablet,delayed 40 mg PO HS 4 weeks #28 tabs 03/13/23 release (Protonix) Allergies Allergy/AdvReac Type Severity Reaction Status Date / Time No Known Allergies Allergy Verified 12/06/21 13:[address] [facility] Disclaimer: The information contained in this section may have been updated after the patient was seen, as this information can be updated by other users. Social History Smoking Status: Unknown if ever smoked alcohol intake: never substance use type: denies use current occupational status: retired Travel in the last 8 weeks: None ROS Obtained: Yes All systems reviewed & no additional complaints except as documented Skin no rash or lesions HEENT no runny nose sore throat Pulmonary no cough or shortness of breath Cardiovascular no chest pain pressure heaviness GI see HPI no dysuria pyuria hematuria Musculoskeletal no neck or back pain Endocrine no polydipsia polyuria or polyphasia Psych no SI or HI The rest of the systems were reviewed and found to be negative Physical Exam Narrative Physical exam: Skin: Warm and dry HEENT: Normocephalic atraumatic extract muscles are intact pupils are equal and reactive to light Neck: Supple nontender Lungs: Clear to auscultation Heart: Regular rate and rhythm Abdomen: NABS soft
[2023-04-18 13:30] VITALS: BP 144/80; PULSE 87; O2SAT 96
[2023-04-18 14:01] VITALS: BP 125/59; PULSE 82; O2SAT 94
[2023-04-18 14:30] VITALS: BP 137/80; PULSE 87; O2SAT 94
--- NOTE | 2023-04-18 14:31 | PC.NURSE ---
Rounded on patient; no needs at this time. Family at BS. No needs at this time. Call espinal within reach
[2023-04-18 15:00] VITALS: BP 135/71; PULSE 86; O2SAT 94
[2023-04-18 15:21] VITALS: BP 142/81; PULSE 89; RESP 20; TEMP 36.8; O2SAT 95
== END 2023-04-18 15:23 | disposition home or self-care (01) ==
PROVIDERS: Emergency Provider Emergency Medicine; PCP Family Medicine
DX: R18.8 Other ascites (principal)
CPT/HCPCS: 76700; 99284